=== PATIENT | female | born 1995 | race American Indian/Alaskan Native ===

== ENCOUNTER 2018-09-22 13:05 | Emergency (ER) | payer MEDICAID ==
[2018-09-22 13:16] VITALS: BP 126/86
--- NOTE | 2018-09-22 13:53 | Emergency Department Report ---
Blank Doc - Documentation Documentation: Patient c/o NVD since and abd pain . Feeling tired. No PMX abdomenn: soft , flat. Normal BS A/P Abdominal pain-urine ua preg, cmp Pt screened by medical provider
[2018-09-22 15:37] LABS: Bilirubin,Urine NEG (Negative); Blood,Urine NEG (Negative); Color,Urine Amber (Yellow); Mucus,Urine 3+ /HPF; Protein,Urine <15 mg/dL mg/dL (Negative); Urobilinogen,Urine < 2.0 mg/dL (<2.0)
[2018-09-22 15:38] LABS: HCG Qualitative,Urine Negative (Negative)
== END 2018-09-22 17:00 | disposition left against medical advice (07) ==
LOC: ED 13:05
DX: R11.2 Nausea with vomiting, unspecified (principal); Z53.21 Procedure and treatment not carried out due to patient leaving prior to being seen by health care provider
CPT/HCPCS: 81001; 81025